=== PATIENT | female | born 1980 | race Caucasian/White ===

== ENCOUNTER 2018-07-25 19:58 | Inpatient (IN) ==
--- NOTE | 2018-07-25 21:00 | ED ---
Addendum entered and electronically signed by Ladan Golden MD, [place] 06:30: Original Note: History of Present Illness Primary Care Physician: NOT REQUIRED Chief Complaint: numb fingertips and swelling History of Present Illness: 38 yo G#P@ at 36 weeks and 4 days who presents to the OB ED due to increased hand swelling and high blood pressures at home. She reports that her BP has been normal in Dr. Mayen's office, but today she developed numbness in her hands and was instructed to monitor her BP at home. Her BP at home was high so she came to the OB ED. Here her BP was 162/86. She reports RUQ pain 2 days ago. She reports good movement. She denies vision changes, dizziness, lightheadedness, chest pain, acute dyspnea, cough, dysuria, vaginal bleeding, leakage of fluid, contractions. She denies any problems in this . OB Hx: Her last was 14 years ago. She has had 2 previous pregnancies with no complications. Her children were born vaginally at term. PMH: denies any medical problems PSH: femur yasmin placement Meds: PNV and iron FH: grandmother with hypertension Social Hx: Denies tobacco use, alcohol use or illicit drug use. She is a former smoker but quit when she found out she was . Weeks Gestation:: 36 Para: 2 : 3 Review of Systems All other systems reviewed negative except as stated in HPI PMFSH - History History Provided By: Patient - Medical / Surgical Hx Neg / Unobtainable Medical Problems Denied: Yes - Social History I have reviewed the patient's Social History: Yes - Tobacco History Tobacco Use In Past 30 Days: No Smoking Status: Former smoker Medications and Allergies Allergies Allergy/AdvReac Type Severity Reaction Status Date / Time No Known Allergies Allergy Verified 07/25/18 21:21 Home Medications Medication Instructions Recorded Confirmed Type Ferate 1 tab PO DAILY 07/25/18 07/26/18 History 1 tab CHEW DAILY 07/25/18 07/25/18 History Exam Vital signs: Vital Signs 07/25/18 20:26 Temperature 98.7 F Pulse Rate 79 Respiratory Rate 18 Blood Pressure 162/86 H Narrative: GENERAL: Well-nourished, well-developed patient. SKIN: Warm and dry. HEAD: Normocephalic and atraumatic. EYES: No scleral icterus. No injection or drainage. ENT: No nasal drainage noted. Mucous membranes pink. Airway patent. NECK: Supple, trachea midline. No JVD. CARDIOVASCULAR: Regular rate and rhythm without murmurs, gallops, or rubs. RESPIRATORY: Breath sounds equal bilaterally. No accessory muscle use. ABDOMEN/GI: Abdomen soft, non-tender, bowel sounds present, no rebound, no guarding Gravid to 36 weeks size GENITOURINARY: External Genitalia: intact and normal in appearance Cervix: midline Dilatation: closed Effacement: thick Station: high Presentation: linear lie Membranes: intact Uterine Contractions: none FHT's: Category: 1 Baseline: 140 Reactive: yes Variability: moderate Decels: none EXTREMITIES: trace pedal edema. NEUROLOGICAL: Awake and alert. Motor and sensory grossly within normal limits. Five out of 5 muscle strength in all muscle groups. Normal speech. Results - Labs CBC & Chem 7: 07/25/18 21:10 07/25/18 21:10 Assessment and Plan - Diagnosis (1) Elevated blood pressure affecting in third trimester, antepartum Code(s): O16.3 - Unspecified maternal hypertension, third trimester Status: Acute (2) 36 weeks gestation of Code(s): Z3A.36 - 36 weeks gestation of Status: Acute - Plan 38 yo at 36 weeks and 4 days who has new elevated blood pressures. Initially her BP was 162/86 and repeat BP were 152/88 and 155/90. FHR reassuring with category 1 tracing. Cervical exam closed/thick/high -Admit to L&D to monitor blood pressure -Initiate hypertension in protocol -CBC -CMP -24 hour urine protein -Urine p/c ratio -UA - Attending Attestation The exam, history, and the medical decision-making described in the above note were completed with the assistance of the resident physician. I reviewed and agree with the findings presented. I attest that I had a [id number] encounter with the patient on the same day, and personally performed and documented my assessment and findings in the medical record. Discharge Plan - Physicians Team Primary Care Provider: NOT REQUIRED, Attending Provider: Gonzalo Garcia
[2018-07-25] MEDS ORDERED: NIFEdipine 10 MG Capsule PO ONE (21:13)
[2018-07-25] MEDS ORDERED: NIFEdipine 10 MG Capsule PO PRN (21:13)
[2018-07-25 21:23] LABS: Hemoglobin 12.1 gm/dL (11.6-15.3); Mean Corpuscular HGB Conc 33.7 % (32.0-36.0); Mean Corpuscular Hemoglobin 29.4 pg (27.0-34.0); Mean Corpuscular Volume 87.2 fL (80.0-100.0); Mean Platelet Volume 9.2 fL (7.0-11.0); Platelet Count 245 th/mm3 (150-450); Red Blood Count 4.13 mil/mm3 (4.00-5.30); Red Cell Distribution Width 14.5 % (11.6-17.2); White Blood Count 13.6 th/mm3 (4.0-11.0)
[2018-07-25 21:48] LABS: Alanine Aminotransferase 19 U/L (10-53); Albumin 2.7 g/dL (3.4-5.0); Anion Gap 10 meq/L (5-15); Aspartate Aminotransferase 18 U/L (15-37); Blood Urea Nitrogen 8 mg/dL (7-18); Calcium 9.1 mg/dL (8.5-10.1); Carbon Dioxide 20.9 meq/L (21.0-32.0); Chloride 108 meq/L (98-107); Glomerular Filtration Rate Greater Than 89 mL/min (>89); Glucose,Random 77 mg/dL (74-106); Potassium 4.1 meq/L (3.5-5.1); Sodium 139 meq/L (136-145)
[2018-07-25 21:50] LABS: Protein/Creatinine Ratio,Urine 0.2 (0.00-0.14); Total Protein,Urine Random 11.8 mg/dL (0-11.8)
[2018-07-25 21:51] LABS: Alkaline Phosphatase 106 U/L (45-117); Total Protein 6.8 g/dL (6.4-8.2)
[2018-07-26] MEDS: Acetaminophen 325 MG Tablet PO PRN ×3 (00:38→19:21)
[2018-07-26 00:44] LABS: Bilirubin,Urine Negative (Negative); Clarity,Urine Clear (Clear); Color,Urine Yellow (Yellw/Straw); Glucose,Urine (UA) Negative (Negative); Leukocyte Esterase,Urine Negative (Negative); Mucus,Urine Few /lpf (Occasional); Nitrite,Urine Negative (Negative); Specific Gravity,Urine 1.012 (1.002-1.035); Squamous Epithelial Cell,Urine 1 /hpf (0-5)
--- NOTE | 2018-07-26 05:54 | P.HPOB ---
Addendum entered and electronically signed by Ladan Golden MD, [place] 06:31: Original Note: OB - ED Note Patient Name: Esha Heaton Date of : 78 Patient Status: Observation Attending Provider: Gonzalo Garcia Date: 07/25/18 21:00 Initialization Date: 07/25/18 21:00 History of Present Illness Primary Care Physician: NOT REQUIRED Chief Complaint: numb fingertips and swelling History of Present Illness: 38 yo G#P@ at 36 weeks and 4 days who presents to the OB ED due to increased hand swelling and high blood pressures at home. She reports that her BP has been normal in Dr. Mayen's office, but today she developed numbness in her hands and was instructed to monitor her BP at home. Her BP at home was high so she came to the OB ED. Here her BP was 162/86. She reports RUQ pain 2 days ago. She reports good movement. She denies vision changes, dizziness, lightheadedness, chest pain, acute dyspnea, cough, dysuria, vaginal bleeding, leakage of fluid, contractions. She denies any problems in this . OB Hx: Her last was 14 years ago. She has had 2 previous pregnancies with no complications. Her children were born vaginally at term. PMH: denies any medical problems PSH: femur yasmin placement Meds: PNV and iron FH: grandmother with hypertension Social Hx: Denies tobacco use, alcohol use or illicit drug use. She is a former smoker but quit when she found out she was . Weeks Gestation:: 36 Para: 2 : 3 Review of Systems All other systems reviewed negative except as stated in HPI PMFSH - History History Provided By: Patient - Medical / Surgical Hx Neg / Unobtainable Medical Problems Denied: Yes - Social History I have reviewed the patient's Social History: Yes - Tobacco History Tobacco Use In Past 30 Days: No Smoking Status: Former smoker Medications and Allergies Allergies Allergy/AdvReac Type Severity Reaction Status Date / Time No Known Allergies Allergy Uncoded 03/22/16 15:22 Exam Vital signs: Vital Signs 07/25/18 20:26 Temperature 98.7 F Pulse Rate 79 Respiratory Rate 18 Blood Pressure 162/86 H Narrative: GENERAL: Well-nourished, well-developed patient. SKIN: Warm and dry. HEAD: Normocephalic and atraumatic. EYES: No scleral icterus. No injection or drainage. ENT: No nasal drainage noted. Mucous membranes pink. Airway patent. NECK: Supple, trachea midline. No JVD. CARDIOVASCULAR: Regular rate and rhythm without murmurs, gallops, or rubs. RESPIRATORY: Breath sounds equal bilaterally. No accessory muscle use. ABDOMEN/GI: Abdomen soft, non-tender, bowel sounds present, no rebound, no guarding Gravid to 36 weeks size GENITOURINARY: External Genitalia: intact and normal in appearance Cervix: midline Dilatation: closed Effacement: thick Station: high Presentation: linear lie Membranes: intact Uterine Contractions: none FHT's: Category: 1 Baseline: 140 Reactive: yes Variability: moderate Decels: none EXTREMITIES: trace pedal edema. NEUROLOGICAL: Awake and alert. Motor and sensory grossly within normal limits. Five out of 5 muscle strength in all muscle groups. Normal speech. Assessment and Plan - Diagnosis (1) Elevated blood pressure affecting in third trimester, antepartum Code(s): O16.3 - Unspecified maternal hypertension, third trimester Status: Acute (2) 36 weeks gestation of Code(s): Z3A.36 - 36 weeks gestation of Status: Acute - Plan 38 yo at 36 weeks and 4 days who has new elevated blood pressures. Initially her BP was 162/86 and repeat BP were 152/88 and 155/90. FHR reassuring with category 1 tracing. Cervical exam closed/thick/high -Admit to L&D to monitor blood pressure -Initiate hypertension in protocol -CBC -CMP -24 hour urine protein -Urine p/c ratio -UA Discharge Plan - Discharge Disposition Patient Disposition: ED Admit(ED Internal Use Only) - Discharge Condition Condition: Stable - Physicians Team ED Provider: Gonzalo Garcia Primary Care Provider: NOT REQUIRED, - Discharge Instructions Print Language: Ma[place] The exam, history, and the medical decision-making described in the above note were completed with the assistance of the resident physician. I reviewed and agree with the findings presented. I attest that I had a [id number] encounter with the patient on the same day, and personally performed and documented my assessment and findings in the medical record.
--- NOTE | 2018-07-26 07:20 | P.OBANTE ---
Subjective Interval History: Patient is resting comfortably this morning. She does report a headache and has had a headache since she received Procardia. She received Tylenol and it only improved the headache slightly. She denies vision changes, RUQ pain, swelling in lower extremities. Antepartum ROS: Reports: movement normal Denies: Loss of fluid, Vaginal bleeding, Contractions Objective Vital Signs and I&O: Vital Signs 07/25/18 20:26 07/25/18 20:45 07/25/18 21:19 Temperature 98.7 F Pulse Rate 79 78 Respiratory Rate 18 18 18 Blood Pressure 162/86 H 152/88 H 07/25/18 21:30 07/25/18 21:45 07/25/18 22:00 Temperature Pulse Rate 75 75 Respiratory Rate 16 Blood Pressure 159/87 H 154/97 H 07/25/18 22:23 07/26/18 00:20 07/26/18 00:30 Temperature 97.9 F Pulse Rate 82 81 Respiratory Rate 18 Blood Pressure 144/77 H 148/83 H 07/26/18 04:30 07/26/18 04:32 Temperature 98.5 F Pulse Rate 76 Respiratory Rate 18 Blood Pressure 128/66 Intake & Output 07/25/18 07/26/18 07/26/18 18:59 06:59 18:59 Weight 99 kg Lab and Micro Results: Laboratory Results - last 24 hr 07/25/18 07/25/18 07/25/18 21:08 21:08 21:10 WBC 13.6 H RBC 4.13 Hgb 12.1 Hct 36.0 MCV 87.2 MCH 29.4 MCHC 33.7 RDW 14.5 Plt Count 245 MPV 9.2 Sodium Potassium Chloride Carbon Dioxide Anion Gap BUN Creatinine Estimated GFR Random Glucose Calcium Total Bilirubin AST ALT Alkaline Phosphatase Total Protein Albumin Urine Color Yellow Urine Clarity Clear Urine pH 7.0 Ur Specific [place] 1.012 Urine Protein Negative Urine Glucose (UA) Negative Urine Ketones Negative Urine Occult Blood Negative Urine Nitrate Negative Urine Bilirubin Negative Urine Urobilinogen Less than 2 Ur Leukocyte Esterase Negative Urine RBC Less than 1 Urine WBC 1 Ur Squamous Epith Cells 1 Urine Mucus Few H Micro UA Comment Culture not ind Ur Microscopic Review Not Reportable Urine Culture Comments Culture not ind Ur Random Creatinine 60 U Random Total Protein 11.8 Protein/Creatinin Ratio 0.20 H 07/25/18 21:10 WBC RBC Hgb Hct MCV MCH MCHC RDW Plt Count MPV Sodium 139 Potassium 4.1 Chloride 108 H Carbon Dioxide 20.9 L Anion Gap 10 BUN 8 Creatinine 0.54 Estimated GFR Greater than 89 Random Glucose 77 Calcium 9.1 Total Bilirubin 0.2 AST 18 ALT 19 Alkaline Phosphatase 106 Total Protein 6.8 Albumin 2.7 L Urine Color Urine Clarity Urine pH Ur Specific [place] Urine Protein Urine Glucose (UA) Urine Ketones Urine Occult Blood Urine Nitrate Urine Bilirubin Urine Urobilinogen Ur Leukocyte Esterase Urine RBC Urine WBC Ur Squamous Epith Cells Urine Mucus Micro UA Comment Ur Microscopic Review Urine Culture Comments Ur Random Creatinine U Random Total Protein Protein/Creatinin Ratio Physical Exam: GENERAL: Well-nourished, well-developed patient. CARDIOVASCULAR: Regular rate and rhythm without murmurs, gallops, or rubs. RESPIRATORY: Breath sounds equal bilaterally. No accessory muscle use. ABDOMEN/GI: Abdomen soft, non-tender. Fundus: 36 GENITOURINARY: FHT's: Category: 1 Baseline: 130 Reactive: yes Variability: moderate Decels: none EXTREMITIES: No cyanosis or edema, non-tender, without signs of DVT. Assessment and Plan - Diagnosis (1) Elevated blood pressure affecting in third trimester, antepartum Code(s): O16.3 - Unspecified maternal hypertension, third trimester Status: Acute (2) 36 weeks gestation of Code(s): Z3A.36 - 36 weeks gestation of Status: Acute - Plan 38 yo at 36 weeks and 5 days who has elevated blood pressures. Initially her BP was 162/86. Blood pressures this morning were 148/83 and 126/66. FHR reassuring with category 1 tracing. -Continue to monitor blood pressures -OB US for EFW -Initiate hypertension in protocol -CBC WNL -CMP WNL -24 hour urine protein -Urine p/c ratio- 0.20 -UA NEGATIVE for infection - Attending Attestation The exam, history, and the medical decision-making described in the above note were completed with the assistance of the resident physician. I reviewed and agree with the findings presented. I attest that I had a [id number] encounter with the patient on the same day, and personally performed and documented my assessment and findings in the medical record.
[2018-07-26] MEDS: Ferrous Sulfate 325 MG Tablet PO SCH (16:38)
[2018-07-26] MEDS: Docusate Sodium 100 MG Capsule PO SCH (16:38)
[2018-07-26] MEDS: Prenatal Vit/Ca/Iron/Folic Acid Tablet PO SCH (16:38)
[2018-07-26] MEDS ORDERED: Docusate Sodium 100 MG Capsule PO SCH (21:00)
[2018-07-26] MEDS ORDERED: Aluminum/Magnesium/Simethacone Susp 30 ML UDC PO PRN (23:28)
[2018-07-27] MEDS: Aluminum/Magnesium/Simethacone Susp 30 ML UDC PO SCH ×4 (00:06→18:28)
--- NOTE | 2018-07-27 07:49 | P.OBANTE ---
Subjective Interval History: doing well no c/o , baby active NST reactive Objective Vital Signs and I&O: Vital Signs 07/26/18 07:49 07/26/18 07:50 07/26/18 11:25 Temperature 98.7 F 98.5 F Pulse Rate 79 82 Respiratory Rate 17 19 Blood Pressure 129/83 143/85 H 07/26/18 15:31 07/26/18 19:26 07/26/18 23:30 Temperature 97.8 F 98.5 F 98.0 F Pulse Rate 76 73 76 Respiratory Rate 17 16 16 Blood Pressure 143/85 H 143/88 H 149/88 H 07/27/18 04:18 Temperature 98.4 F Pulse Rate 76 Respiratory Rate 16 Blood Pressure 141/75 H Intake & Output 07/26/18 07/27/18 07/27/18 18:59 06:59 18:59 Weight 99 kg Other: Weight On Admission 99 kg Lab and Micro Results: Laboratory Results - last 24 hr 07/26/18 22:00 Ur 24 Hour Volume 3120 Ur Total Protein 24 Hr 315 H Physical Exam: GENERAL: Well-nourished, well-developed patient. CARDIOVASCULAR: Regular rate and rhythm without murmurs, gallops, or rubs. RESPIRATORY: Breath sounds equal bilaterally. No accessory muscle use. ABDOMEN/GI: Abdomen soft, non-tender. Fundus: [-36 cm] GENITOURINARY: External Genitalia: intact and normal in appearance Cervix: [-] Dilatation: [-deferred] Effacement: [-] Station: [-] Presentation: [vtx-] Membranes: [-intact] Uterine Contractions: [none-] FHT's: Category: [1-] Baseline: [133-] Reactive: [-R] Variability: [mod-] Decels: [-0]+ accels EXTREMITIES: No cyanosis or edema, non-tender, without signs of DVT. Assessment and Plan - Diagnosis (1) Elevated blood pressure affecting in third trimester, antepartum Code(s): O16.3 - Unspecified maternal hypertension, third trimester Status: Acute (2) 36 weeks gestation of Code(s): Z3A.36 - 36 weeks gestation of Status: Acute - Plan 38 yo at 36 weeks and 6 days who has elevated blood pressures. Initially her BP was 162/86. Blood pressures this morning were borderline high. FHR reassuring with category 1 tracing. -Continue to monitor blood pressures -OB US for EFW -Initiate hypertension in protocol -CBC WNL -CMP WNL -24 hour urine protein -315 gm -Urine p/c ratio- 0.20 -UA NEGATIVE for infection Plan is cervical ripening tonight and induction of labor in AM
[2018-07-27] MEDS: Prenatal Vit/Ca/Iron/Folic Acid Tablet PO SCH (08:24)
[2018-07-27] MEDS: Docusate Sodium 100 MG Capsule PO SCH ×2 (08:24→20:20)
[2018-07-27] MEDS: Ferrous Sulfate 325 MG Tablet PO SCH (08:24)
[2018-07-27] MEDS ORDERED: Ferrous Sulfate 325 MG Tablet PO SCH (09:00)
[2018-07-27] MEDS ORDERED: Prenatal Vit/Ca/Iron/Folic Acid Tablet PO SCH (09:00)
[2018-07-27 17:37] LABS: Baso # (Auto) 0.1 th/mm3 (0.0-0.2); Baso % (Auto) 0.7 % (0.0-2.0); Eos # (Auto) 0.1 th/mm3 (0.0-0.4); Eos % (Auto) 0.8 % (0.0-4.0); Hematocrit 35.2 % (35.0-46.0); Hemoglobin 12.2 gm/dL (11.6-15.3); Lymph # (Auto) 2.7 th/mm3 (1.0-4.8); Mean Corpuscular HGB Conc 34.8 % (32.0-36.0); Mean Corpuscular Hemoglobin 30.6 pg (27.0-34.0); Mono # (Auto) 0.6 th/mm3 (0.0-0.9); Mono % (Auto) 4.5 % (0.0-8.0); Neut # (Auto) 9.5 th/mm3 (1.8-7.7); Platelet Count 230 th/mm3 (150-450); Red Blood Count 3.99 mil/mm3 (4.00-5.30); Red Cell Distribution Width 14.5 % (11.6-17.2)
[2018-07-27 17:54] LABS: Anion Gap 10 meq/L (5-15); Blood Urea Nitrogen 11 mg/dL (7-18); Calcium 9.1 mg/dL (8.5-10.1); Carbon Dioxide 22.5 meq/L (21.0-32.0); Chloride 108 meq/L (98-107); Glomerular Filtration Rate Greater Than 89 mL/min (>89); Glucose,Random 114 mg/dL (74-106); Potassium 3.8 meq/L (3.5-5.1); Sodium 140 meq/L (136-145)
[2018-07-27] MEDS: Acetaminophen 325 MG Tablet PO PRN (20:20)
[2018-07-28] MEDS: Zolpidem Tartrate 5 MG Tablet PO PRN ×2 (00:54→22:33)
[2018-07-28] MEDS: Ferrous Sulfate 325 MG Tablet PO SCH (08:28)
[2018-07-28] MEDS: Prenatal Vit/Ca/Iron/Folic Acid Tablet PO SCH (08:28)
[2018-07-28] MEDS: Oxytocin 30 Units/500ml Premix 30 UNITS/500 ML BAG IV.SIG PRN (08:28)
[2018-07-28] MEDS: Docusate Sodium 100 MG Capsule PO SCH ×2 (08:32→20:17)
[2018-07-28] MEDS: Aluminum/Magnesium/Simethacone Susp 30 ML UDC PO SCH ×2 (08:33→20:17)
--- NOTE | 2018-07-28 09:10 | P.OBANTE ---
Subjective Interval History: Patient seen and examined at bedside this am. No acute events overnight. Patient had cervidil removed this am appx 630 and will be started on pit. No other complaints. Antepartum ROS: Denies: New complaints Objective Vital Signs and I&O: Vital Signs 07/27/18 11:33 07/27/18 11:34 07/27/18 16:55 Temperature 98.0 F Pulse Rate 84 86 Respiratory Rate 18 Blood Pressure 149/87 H 158/86 H 07/27/18 18:27 07/27/18 19:13 07/27/18 20:16 Temperature 97.8 F Pulse Rate 84 80 Respiratory Rate 18 18 Blood Pressure 150/90 H 146/80 H 07/27/18 21:02 07/27/18 22:00 07/27/18 23:37 Temperature Pulse Rate 76 Respiratory Rate 18 18 18 Blood Pressure 143/72 H 07/27/18 23:38 07/28/18 00:50 07/28/18 02:35 Temperature 98.5 F Pulse Rate 76 78 Respiratory Rate 18 18 Blood Pressure 137/77 139/81 07/28/18 02:36 07/28/18 04:47 07/28/18 06:56 Temperature 97.6 F Pulse Rate 80 80 76 Respiratory Rate 18 18 Blood Pressure 140/86 136/86 159/91 H 07/28/18 07:19 07/28/18 07:24 07/28/18 08:36 Temperature 97.4 F L Pulse Rate 81 76 Respiratory Rate Blood Pressure 148/97 H 136/89 07/28/18 09:00 Temperature Pulse Rate 74 Respiratory Rate 18 Blood Pressure 151/99 H Lab and Micro Results: Laboratory Results - last 24 hr 07/27/18 07/27/18 07/27/18 17:25 17:25 17:25 WBC 13.0 H RBC 3.99 L Hgb 12.2 Hct 35.2 MCV 88.0 MCH 30.6 MCHC 34.8 RDW 14.5 Plt Count 230 MPV 9.0 Neut % (Auto) 73.0 H Lymph % (Auto) 21.0 [place] % (Auto) 4.5 Eos % (Auto) 0.8 Baso % (Auto) 0.7 Neut # (Auto) 9.5 H Lymph # (Auto) 2.7 [place] # (Auto) 0.6 Eos # (Auto) 0.1 Baso # (Auto) 0.1 WBC Differential . Differential Comment Auto diff final Sodium 140 Potassium 3.8 Chloride 108 H Carbon Dioxide 22.5 Anion Gap 10 BUN 11 Creatinine 0.58 Estimated GFR Greater than 89 Random Glucose 114 H Calcium 9.1 Blood Type O Negative Blood Type Recheck Not needed Physical Exam: GENERAL: Well-nourished, well-developed patient. CARDIOVASCULAR: Regular rate and rhythm without murmurs, gallops, or rubs. RESPIRATORY: Breath sounds equal bilaterally. No accessory muscle use. ABDOMEN/GI: Gravid Abdomen soft, non-tender. GENITOURINARY: External Genitalia: intact and normal in appearance Dilatation: 0-1 Effacement: 40 Station: -2 Presentation: vertex Membranes: intact Uterine Contractions: irregular FHT's: Category: 1 Baseline: 130 Reactive: yes Variability: mod Decels:none Accelerations: present EXTREMITIES: No cyanosis or edema, non-tender, without signs of DVT. Assessment and Plan - Diagnosis (1) Elevated blood pressure affecting in third trimester, antepartum Code(s): O16.3 - Unspecified maternal hypertension, third trimester Status: Acute (2) 36 weeks gestation of Code(s): Z3A.36 - 36 weeks gestation of Status: Acute - Plan 38 yo at 37 weeks who has elevated blood pressures. Initially her BP was 162/86. Blood pressures this morning ranged 130s-150s/ 90s. pt is asymptomatic. -Continue to monitor blood pressures -hypertension in protocol -OB US for EFW 07/28/18: weight at 26% for gestational age, BPP 8/8, JE 13.6cm -FHR reassuring with category 1 tracing. -CBC and CMP WNL -24 hour urine protein -315 gm -Urine p/c ratio- 0.20 -UA NEGATIVE for infection s/p cervical ripening overnight, cervidil removed this am and pit started. NPO c/w monitoring labor progression and labor induction sdw Dr. Ronquillo - Attending Attestation The exam, history, and the medical decision-making described in the above note were completed with the assistance of the resident physician. I reviewed and agree with the findings presented. I attest that I had a [id number] encounter with the patient on the same day, and personally performed and documented my assessment and findings in the medical record. Pt seen and examined. Pit started. AROM when able.
--- NOTE | 2018-07-28 17:18 | P.OBLABOR ---
Subjective Interval history: Patient is comfortable. She has been on pit since this morning, pit is currently at 20. no complaints. Objective Vital Signs: Vital Signs - 8 hr 07/28/18 09:30 07/28/18 10:30 07/28/18 10:35 Temperature Pulse Rate 77 73 Respiratory Rate 18 18 Blood Pressure 141/81 H 143/84 H 07/28/18 11:00 07/28/18 11:10 07/28/18 11:46 Temperature 97.8 F Pulse Rate 76 82 Respiratory Rate 18 18 Blood Pressure 152/81 H 140/77 07/28/18 12:00 07/28/18 12:12 07/28/18 12:53 Temperature Pulse Rate 74 74 Respiratory Rate 18 18 Blood Pressure 138/80 133/82 07/28/18 14:30 07/28/18 14:48 07/28/18 16:28 Temperature 97.9 F Pulse Rate 80 69 78 Respiratory Rate 18 18 Blood Pressure 146/87 H 140/81 144/82 H Objective: Pelvic Exam: Dilatation: fingertip to 1 Effacement: 30 Station: -3, unengaged with pelvis Membranes: intact Uterine Contractions: none FHT's: Category:1 Baseline: 120 Reactive: yes Variability: mod Decels: none Accelerations: present Assessment and Plan - Diagnosis (1) Elevated blood pressure affecting in third trimester, antepartum Code(s): O16.3 - Unspecified maternal hypertension, third trimester Status: Acute (2) 36 weeks gestation of Code(s): Z3A.36 - 36 weeks gestation of Status: Acute - Plan 38 yo at 37 weeks who has elevated blood pressures. Blood pressures improving this afternoon, 130-140/80s. Pt asymptomatic. -Continue to monitor blood pressures -hypertension in protocol -FHR reassuring with category 1 tracing. -s/p cervical ripening overnight, cervidil removed this am and pit started. -pt currently on pit at 20 which will be stopped at 1800 -No significant cervical change on recheck exam plan to start cervidil at 2000 and leave overnight c/w monitoring labor progression and labor induction sdw Dr. Stringer
--- NOTE | 2018-07-29 08:48 | P.OBLABOR ---
Subjective Interval history: Patient was eating breakfast during my evaluation. She has concerns or complaints at this time. Objective Vital Signs: Vital Signs - 8 hr 07/29/18 02:30 07/29/18 04:44 07/29/18 06:41 Temperature 97.9 F 97.9 F 97.7 F Pulse Rate 77 67 82 Respiratory Rate 18 18 18 Blood Pressure 135/81 120/80 134/88 07/29/18 08:18 Temperature Pulse Rate 68 Respiratory Rate 17 Blood Pressure 151/94 H Objective: Pelvic Exam: Cervix: Posterior Dilatation: 1 Effacement: 40 Station: -3 Presentation: Vertex confirmed by ultrasound Membranes: Ruptured artificially Uterine Contractions: Yes FHT's: Category: 1 Baseline: 140 Reactive: Yes Variability: Moderate Decels: 1 isolated deceleration Artificial Rupture of Membrane: Yes Artificial ROM Date: 07/29/18 Artificial ROM Time: 08:00 Assessment and Plan - Diagnosis (1) Elevated blood pressure affecting in third trimester, antepartum Code(s): O16.3 - Unspecified maternal hypertension, third trimester Status: Acute (2) 36 weeks gestation of Code(s): Z3A.36 - 36 weeks gestation of Status: Acute - Plan 38 yo at 37 weeks who has elevated blood pressures. Blood pressures stable today. Pt asymptomatic. -Continue to monitor blood pressures -hypertension in protocol -FHR reassuring with category 1 tracing. -patient on pitocin this AM. c/w monitoring labor progression and labor induction sdw Dr. Stringer
[2018-07-29] MEDS: Ferrous Sulfate 325 MG Tablet PO SCH (10:35)
[2018-07-29] MEDS: Prenatal Vit/Ca/Iron/Folic Acid Tablet PO SCH (10:35)
[2018-07-29] MEDS: Docusate Sodium 100 MG Capsule PO SCH (10:37)
[2018-07-29] MEDS: Aluminum/Magnesium/Simethacone Susp 30 ML UDC PO SCH (10:37)
--- NOTE | 2018-07-29 18:55 | P.OBLABOR ---
Subjective Interval history: Pt doing well. Feeling ctxs more but not significantly uncomfortable. SVE 2-3/ th/-3. Will continue Pitocin for now. FHTs 120s, +accels, no decels, mod variablilty, reactive, cat 1. Contractions q 3 min. Objective Vital Signs: Vital Signs - 8 hr 07/29/18 11:09 07/29/18 11:56 07/29/18 12:15 Temperature 98.1 F Pulse Rate 74 Respiratory Rate 18 18 Blood Pressure 144/88 H 07/29/18 12:42 07/29/18 13:07 07/29/18 14:00 Temperature Pulse Rate 68 Respiratory Rate 17 18 18 Blood Pressure 151/96 H 07/29/18 14:05 07/29/18 14:15 07/29/18 14:45 Temperature Pulse Rate 70 Respiratory Rate 17 18 Blood Pressure 158/90 H 07/29/18 15:00 07/29/18 15:01 07/29/18 15:07 Temperature 97.9 F Pulse Rate 76 Respiratory Rate 17 Blood Pressure 149/90 H 07/29/18 15:45 07/29/18 16:04 07/29/18 16:45 Temperature Pulse Rate Respiratory Rate 18 17 18 Blood Pressure 07/29/18 17:02 07/29/18 17:03 07/29/18 17:04 Temperature Pulse Rate 69 68 Respiratory Rate 17 Blood Pressure 161/96 H 07/29/18 17:45 07/29/18 17:58 07/29/18 17:59 Temperature 97.9 F Pulse Rate 79 Respiratory Rate 18 19 Blood Pressure 148/88 H 07/29/18 18:45 Temperature Pulse Rate Respiratory Rate 18 Blood Pressure Objective: Pelvic Exam: Cervix: [-] Dilatation: [-] Effacement: [-] Station: [-] Presentation: [-] Membranes: [intact or ruptured] Uterine Contractions: [-] FHT's: Category: [-] Baseline: [-] Reactive: [-] Variability: [-] Decels: [-] Assessment and Plan - Diagnosis (1) Elevated blood pressure affecting in third trimester, antepartum Code(s): O16.3 - Unspecified maternal hypertension, third trimester Status: Acute (2) 36 weeks gestation of Code(s): Z3A.36 - 36 weeks gestation of Status: Acute - Plan 38 yo at 37 weeks who has elevated blood pressures. Blood pressures stable today. Pt asymptomatic. -Continue to monitor blood pressures -hypertension in protocol -FHR reassuring with category 1 tracing. -patient on pitocin this AM. c/w monitoring labor progression and labor induction sdw Dr. Stringer
--- NOTE | 2018-07-29 21:16 | P.OBLABOR ---
Subjective Interval history: Pt doing well. She states ctxs becoming more uncomfortable but tolerable. SVE 3/50/-3, post. Ctxs every 3- 3 1/2 min. FHTs reactive, cat 1, 130s, +accels, no decels. Objective Vital Signs: Vital Signs - 8 hr 07/29/18 14:00 07/29/18 14:05 07/29/18 14:15 Temperature Pulse Rate 70 Respiratory Rate 18 17 Blood Pressure 158/90 H 07/29/18 14:45 07/29/18 15:00 07/29/18 15:01 Temperature 97.9 F Pulse Rate 76 Respiratory Rate 18 Blood Pressure 149/90 H 07/29/18 15:07 07/29/18 15:45 07/29/18 16:04 Temperature Pulse Rate Respiratory Rate 17 18 17 Blood Pressure 07/29/18 16:45 07/29/18 17:02 07/29/18 17:03 Temperature Pulse Rate 69 Respiratory Rate 18 17 Blood Pressure 161/96 H 07/29/18 17:04 07/29/18 17:45 07/29/18 17:58 Temperature 97.9 F Pulse Rate 68 Respiratory Rate 18 19 Blood Pressure 07/29/18 17:59 07/29/18 18:45 07/29/18 19:17 Temperature Pulse Rate 79 81 Respiratory Rate 18 Blood Pressure 148/88 H 155/90 H 07/29/18 19:18 Temperature 98.0 F Pulse Rate Respiratory Rate 18 Blood Pressure Objective: Pelvic Exam: Cervix: [-] Dilatation: [-] Effacement: [-] Station: [-] Presentation: [-] Membranes: [intact or ruptured] Uterine Contractions: [-] FHT's: Category: [-] Baseline: [-] Reactive: [-] Variability: [-] Decels: [-] Assessment and Plan - Diagnosis (1) Elevated blood pressure affecting in third trimester, antepartum Code(s): O16.3 - Unspecified maternal hypertension, third trimester Status: Acute (2) 36 weeks gestation of Code(s): Z3A.36 - 36 weeks gestation of Status: Acute - Plan 38 yo at 37 weeks who has elevated blood pressures. Blood pressures stable today. Pt asymptomatic. -Continue to monitor blood pressures -hypertension in protocol -FHR reassuring with category 1 tracing. -patient on pitocin this AM. c/w monitoring labor progression and labor induction
[2018-07-29] MEDS ORDERED: fentaNYL Citrate Inj 100 MCG/2 ML Ampul IV.PUSH PRN ×2 (21:41)
[2018-07-29] MEDS ORDERED: Naloxone Inj 0.4 MG/ML Vial IV.PUSH PRN (21:41)
[2018-07-30] MEDS ORDERED: Sod Chloride 0.9% Inj 1,000 ML IV.CONT PRN (00:54)
[2018-07-30] MEDS ORDERED: Oxytocin 30 Units/500ml Premix 30 UNITS/500 ML BAG IV.SIG ONE (00:54)
[2018-07-30] MEDS ORDERED: Sodium Chlor 0.9% Inj 500 ML IV.SIG PRN (00:54)
[2018-07-30] MEDS ORDERED: Citric Acid/Sodium Citrate Liq 30 ML UDC PO SCH (01:00)
[2018-07-30] MEDS ORDERED: Penicillin G Potassium Inj 5,000,000 UNIT in Sodium Chloride 0.9% Inj 100 ML IV.SIG ONE (02:00)
[2018-07-30] MEDS ORDERED: fentaNYL 2MCG-Bupiv 0.125% Epi 150 ML EPIDURAL ONE (03:10)
[2018-07-30] MEDS ORDERED: fentaNYL Citrate Inj 100 MCG/2 ML Ampul EPIDURAL ONE (04:02)
[2018-07-30] MEDS: Aluminum/Magnesium/Simethacone Susp 30 ML UDC PO SCH ×4 (04:25→21:13)
[2018-07-30] MEDS: fentaNYL 2MCG-Bupiv 0.125% Epi 150 ML EPIDURAL PRN ×2 (04:25→14:21)
[2018-07-30] MEDS: Penicillin G Potassium Inj 2,500,000 UNIT in Sodium Chlor 0.9% Inj 100 ML IV.SIG SCH ×5 (06:19→23:29)
--- NOTE | 2018-07-30 09:14 | P.OBLABOR ---
Subjective Interval history: Patient doing well this morning. She is tired but no other complaints. She is not feeling contractions. Objective Vital Signs: Vital Signs - 8 hr 07/30/18 02:00 07/30/18 03:36 07/30/18 03:50 Temperature 98.0 F 98.3 F Pulse Rate 73 79 Respiratory Rate 22 Blood Pressure 154/96 H 139/88 07/30/18 03:55 07/30/18 04:03 07/30/18 04:05 Temperature Pulse Rate 81 79 Respiratory Rate 18 Blood Pressure 141/71 H 141/81 H 142/83 H 07/30/18 04:10 07/30/18 04:15 07/30/18 04:25 Temperature Pulse Rate 75 76 78 Respiratory Rate Blood Pressure 143/85 H 143/82 H 140/77 07/30/18 04:30 07/30/18 05:00 07/30/18 05:30 Temperature Pulse Rate 73 78 80 Respiratory Rate Blood Pressure 141/80 H 135/75 141/79 H 07/30/18 06:00 07/30/18 06:22 07/30/18 06:30 Temperature 98.0 F Pulse Rate 75 74 Respiratory Rate 18 Blood Pressure 134/83 132/80 07/30/18 07:10 07/30/18 07:41 07/30/18 08:10 Temperature 98.8 F Pulse Rate 76 84 81 Respiratory Rate 20 Blood Pressure 129/77 124/73 125/64 Objective: Pelvic Exam: Cervix: posterior Dilatation: 3 Effacement: 50 Station: -3 Presentation: vertex Membranes: artificially ruptured 8:00AM 07/29/18 Uterine Contractions: yes FHT's: Category: 1 Baseline: 125 Reactive: yes Variability: moderate Decels: none Weeks Gestation: 37 Assessment and Plan - Diagnosis (1) Elevated blood pressure affecting in third trimester, antepartum Code(s): O16.3 - Unspecified maternal hypertension, third trimester Status: Acute (2) 36 weeks gestation of Code(s): Z3A.36 - 36 weeks gestation of Status: Acute - Plan 38 yo at 37 weeks 2 days who has elevated blood pressures. Blood pressures remain stable today. -Continue to monitor blood pressures -hypertension in protocol -Continue penicillin due to prolonged rupture of membrane -FHR reassuring with category 1 tracing. -Patient administered 50 mcg of vaginal Cytotec at 8:16 AM c/w monitoring labor progression and labor induction. Discussed with OB hospitalist, Dr. Ronquillo - Attending Attestation The exam, history, and the medical decision-making described in the above note were completed with the assistance of the resident physician. I reviewed and agree with the findings presented. I attest that I had a [id number] encounter with the patient on the same day, and personally performed and documented my assessment and findings in the medical record. Pt seen and examined. Discussed rationale for stopping pit and giving cytotec x 2. Will then restart pit. She understands. Pt afebrile and FHTs reactive.
--- NOTE | 2018-07-30 11:11 | P.OBGPN ---
Patient is a 38-year-old at 37 weeks and 2 days-admitted for signs and symptoms consistent with preeclampsia at this time normotensive. Received signout from Dr. Ronquillo. AROM at 8 AM yesterday clear fluid however minimal cervical change she has been on antibiotics. Went in to see and discussed with the patient plan of care cervix noted to be 3-4/60% effaced /-3 asynclitic presentation. The pelvis is noted to be adequate and status is reassuring. At this time plan change of maternal position continue with augmentation. Continue close monitoring maternal and status
[2018-07-30] MEDS ORDERED: Measles/Mumps/Rubella Vaccine Inj 0.5 ML Vial SQ ONE (16:00)
[2018-07-30] MEDS ORDERED: Diphtheria/Tetanus/Pertussis Vaccine Inj 0.5 ML Syringe IM ONE (16:00)
[2018-07-30] MEDS: Prenatal Vit/Ca/Iron/Folic Acid Tablet PO SCH (17:46)
[2018-07-30] MEDS: Ferrous Sulfate 325 MG Tablet PO SCH (17:46)
[2018-07-30] MEDS: Docusate Sodium 100 MG Capsule PO SCH ×2 (17:48→20:02)
--- NOTE | 2018-07-30 18:11 | P.OBGPN ---
Patient seen and evaluated. Blood pressures are within normal limits. Urine output is adequate. Vaginal exam 4 cm dilated 60% effaced -3 station. Cytotec x3 today. Plan to start oxytocin
[2018-07-30] MEDS: Oxytocin 30 Units/500ml Premix 30 UNITS/500 ML BAG IV.SIG PRN (18:30)
[2018-07-30] MEDS ORDERED: Bupivacaine PF 0.25% Inj 10 ML Vial ONE (21:38)
--- NOTE | 2018-07-30 22:36 | P.OBDELI ---
Weeks Gestation: 37 Patient Started Active Labor: No Medical Induction of Labor: Yes Artificial Rupture of Membrane: Yes Anesthesia: Epidural Vaginal Delivery: Normal Presentation: Occiput anterior Nuchal Cord: Other (Cord around both feet) Delayed Cord Clamping (45 sec): Yes Placenta: Spontaneous delivery Laceration: None Estimated blood loss (mL): 50 : Male Infant score (1 min): 5 score (5 min): 9 Additional Information: Blood pressure was noted to be 160s over 80 as patient approached 8 cm before she was actually quite normotensive. The plan will be to continue monitoring her blood pressure post delivery.
[2018-07-30] MEDS ORDERED: Oxytocin 30 Units/500ml Premix 30 UNITS/500 ML BAG IV.CONT PRN (22:47)
[2018-07-30] MEDS ORDERED: Naloxone Inj 0.4 MG/ML Vial IV.PUSH PRN (22:47)
[2018-07-30] MEDS ORDERED: Witch Hazel 50%/Glyderin 12.5% 40 Pad Jar RECTAL PRN (22:47)
[2018-07-30] MEDS ORDERED: Zolpidem Tartrate 5 MG Tablet PO PRN (22:47)
[2018-07-30] MEDS ORDERED: Benzocaine 20% Top Spray 60 ML Can TOPICAL PRN (22:47)
[2018-07-30] MEDS ORDERED: Bisacodyl 10 MG Supp RECTAL PRN (22:47)
[2018-07-31] MEDS: Acetaminophen 325 MG Tablet PO PRN ×3 (01:20→18:38)
[2018-07-31] MEDS: Senna/Docusate Sodium 8.6/50 MG Tablet PO SCH ×2 (07:59→21:00)
--- NOTE | 2018-07-31 09:17 | P.PNOB ---
Subjective Post day: 1 Interval history: Patient is a 38-year-old G 3 P 3 delivered at 37 weeks. Patient is day 1 after induced vaginal delivery due to maternal hypertension. She did have prolonged rupture of membranes. Patient's pain is well-controlled. After dinner last night, patient did have nausea. She has not yet ate this morning. Patient reports minimal bleeding. Patient has passed gas but no bowel movements. Patient is walking without lower extremity pain or shortness of breath. Patient reports desire for contraception and breast-feeding. She is contemplating a tubal ligation or her may be getting a vasectomy. Objective Vital Signs/I&O: Vital Signs 07/30/18 10:11 07/30/18 11:25 07/30/18 11:55 Temperature 98.6 F Pulse Rate 78 73 71 Respiratory Rate 20 Blood Pressure 138/88 152/97 H 156/88 H 07/30/18 12:25 07/30/18 12:50 07/30/18 12:52 Temperature 98.3 F Pulse Rate 71 76 Respiratory Rate 20 Blood Pressure 153/91 H 112/67 07/30/18 13:35 07/30/18 13:37 07/30/18 14:25 Temperature Pulse Rate 81 76 Respiratory Rate 20 Blood Pressure 125/78 134/107 H 07/30/18 14:48 07/30/18 14:55 07/30/18 15:15 Temperature 98.0 F Pulse Rate 64 71 69 Respiratory Rate 20 Blood Pressure 133/82 129/73 07/30/18 15:55 07/30/18 16:55 07/30/18 17:30 Temperature Pulse Rate 70 74 67 Respiratory Rate 20 Blood Pressure 120/74 123/73 142/85 H 07/30/18 18:20 07/30/18 18:35 07/30/18 18:55 Temperature Pulse Rate 82 67 70 Respiratory Rate 20 Blood Pressure 145/83 H 136/88 149/87 H 07/30/18 19:25 07/30/18 19:31 07/30/18 19:32 Temperature 97.9 F Pulse Rate 73 74 Respiratory Rate 18 Blood Pressure 126/70 07/30/18 19:40 07/30/18 19:45 07/30/18 19:50 Temperature Pulse Rate 70 70 68 Respiratory Rate Blood Pressure 07/30/18 19:55 07/30/18 20:00 07/30/18 20:05 Temperature Pulse Rate 70 68 73 Respiratory Rate Blood Pressure 121/69 07/30/18 20:10 07/30/18 20:15 07/30/18 20:25 Temperature Pulse Rate 75 72 74 Respiratory Rate Blood Pressure 07/30/18 20:30 07/30/18 20:35 07/30/18 20:40 Temperature Pulse Rate 73 75 74 Respiratory Rate Blood Pressure 127/73 07/30/18 20:45 07/30/18 20:50 07/30/18 20:55 Temperature Pulse Rate 71 71 71 Respiratory Rate Blood Pressure 07/30/18 21:00 07/30/18 21:05 07/30/18 21:10 Temperature Pulse Rate 72 70 72 Respiratory Rate Blood Pressure 128/90 07/30/18 21:15 07/30/18 21:20 07/30/18 21:25 Temperature 98.9 F Pulse Rate 76 70 69 Respiratory Rate Blood Pressure 07/30/18 21:30 07/30/18 21:35 07/30/18 21:40 Temperature Pulse Rate 79 78 74 Respiratory Rate Blood Pressure 07/30/18 21:45 07/30/18 21:48 07/30/18 21:50 Temperature Pulse Rate 75 72 71 Respiratory Rate Blood Pressure 164/95 H 07/30/18 21:55 07/30/18 22:00 07/30/18 22:05 Temperature Pulse Rate 70 69 75 Respiratory Rate Blood Pressure 165/89 H 07/30/18 22:10 07/30/18 22:20 07/30/18 22:25 Temperature Pulse Rate 72 71 93 H Respiratory Rate Blood Pressure 07/30/18 22:31 07/30/18 22:39 07/30/18 22:42 Temperature 98.1 F Pulse Rate 98 H Respiratory Rate 18 Blood Pressure 121/73 07/30/18 22:45 07/30/18 23:00 07/30/18 23:15 Temperature Pulse Rate 92 H 90 85 Respiratory Rate Blood Pressure 117/66 119/73 115/71 07/30/18 23:30 07/30/18 23:45 07/30/18 23:49 Temperature 98.1 F Pulse Rate 83 80 Respiratory Rate 16 Blood Pressure 124/72 116/75 07/31/18 00:36 07/31/18 08:00 Temperature 98.5 F 97.6 F Pulse Rate 86 66 Respiratory Rate 18 9 L Blood Pressure 124/74 126/79 Intake & Output 07/30/18 07/31/18 07/31/18 18:59 06:59 18:59 Intake Total 1600 / 1600 100 / 100 Balance 1600 / 1600 100 / 100 Intake: IV 1600 / 1600 100 / 100 LR 1000 mL Inj 1,000 ML @ 125 1000 / 1000 mls/hr IV.CONT .Q8H [facility] Rx#: [id number] Pitocin 30 Units/NS 500 ml 500 / 500 Premix 30 units In 500 ml @ 2 MILLIUNIT/MIN 2 mls/hr IV.SIG TITRATE PRN Rx#:[id number] Pfizerpen-G Inj 2,500,000 UNIT 100 / 100 100 / 100 In NS Inj 100 ML @ 200 mls/hr IV.SIG Q4H [facility] Rx#:[id number] Result Diagrams: 07/27/18 17:25 07/27/18 17:25 Objective Remarks: GENERAL: Well-nourished, well-developed patient. CARDIOVASCULAR: Regular rate and rhythm without murmurs, gallops, or rubs. RESPIRATORY: Breath sounds equal bilaterally. No accessory muscle use. ABDOMEN/GI: Abdomen soft, non-tender. Fundus: Firm, non-tender at umbilicus. GENITOURINARY: Light to moderate bleeding. EXTREMITIES: No cyanosis or edema, non-tender, without signs of DVT. Medications and IVs: Active Medications Acetaminophen (Tylenol) 650 mg PO Q4H PRN PRN Reason: PAIN SCALE 1 TO 2 Last Admin: 07/31/18 01:20 Dose: 650 mg Al Hydroxide/Mg Hydroxide (Milk Of Magnesia Liq) 30 ml PO Q12H PRN PRN Reason: Mild Constipation Benzocaine (Americaine 20% Top [place]) 1 spray TOPICAL Q4H PRN PRN Reason: For Perineum Discomfort Last Admin: 07/31/18 01:21 Dose: 1 spray Bisacodyl (Dulcolax Supp) 10 mg RECTAL DAILY PRN PRN Reason: SEVERE CONSITIPATION Citric Acid/Sodium Citrate (Sodium Citrate/Citric Acid Liq) 30 ml PO [employer] [facility] Stop: 08/03/18 00:59 Lactated Ringer's (Lr 1000 Ml Inj) 1,000 mls @ 3,000 mls/hr IV.SIG UNSCH PRN PRN Reason: compromise or epidural Sodium Chloride (Ns Inj) 500 mls @ 1,000 mls/hr IV.SIG UNSCH PRN PRN Reason: SEE LABEL COMMENTS Penicillin G Potassium 2,500, (000 unit/ Sodium Chloride) 100 mls @ 200 mls/hr IV.SIG Q4H [facility] Last Admin: 07/30/18 23:29 Dose: Not Given Sodium Chloride (Ns Inj) 1,000 mls @ 100 mls/hr IV.CONT .Q10H PRN PRN Reason: SEE LABEL COMMENTS Fentanyl/Bupivacaine/Sodium Chlor (Fentanyl 2 Mcg-Bupiv 0.125% Epi) 150 mls @ 12 mls/hr EPIDURAL PRN PRN PRN Reason: for Labor Pain Last Admin: 07/30/18 14:21 Dose: 12 mls/hr Oxytocin (Pitocin 30 Units/Ns 500 Ml Premix) 30 units in 500 mls @ 100 mls/hr IV.CONT UNSCH PRN PRN Reason: Heavy bleeding Ibuprofen (Motrin) 800 mg PO Q8H PRN PRN Reason: For Cramping Last Admin: 07/31/18 01:20 Dose: 800 mg Lactulose (Lactulose Liq) 30 ml PO DAILY PRN PRN Reason: SEVERE CONSITIPATION Lidocaine HCl (Xylocaine 1% Inj) 0.1 ml I-DERMAL PRN PRN PRN Reason: For IV start Stop: 08/02/18 00:53 Lidocaine HCl (Xylocaine 1% Inj) 10 ml INFILTRATN PRN PRN PRN Reason: For episiotomy repair Stop: 08/01/18 00:53 Naloxone HCl (Narcan Inj) 0.1 mg IV.PUSH Q2M PRN PRN Reason: for opiate reversal Ondansetron HCl (Zofran Inj) 4 mg IV.PUSH Q6H PRN PRN Reason: NAUSEA OR VOMITING Last Admin: 07/30/18 00:20 Dose: 4 mg Ondansetron HCl (Zofran Odt) 4 mg PO Q6H PRN PRN Reason: NAUSEA OR VOMITING Senna/Docusate Sodium (Lisy-Colace) 1 tab PO BID [facility] Last Admin: 07/31/18 07:59 Dose: 1 tab Sennosides (Senokot) 17.2 mg PO Q12H PRN PRN Reason: Moderate Constipation Sodium Chloride (Ns Flush) 2 ml IV.FLUSH BID [facility] Sodium Chloride (Ns Flush) 2 ml IV.FLUSH PRN PRN PRN Reason: FLUSH AFTER USING IV ACCESS Witch Temitope/Glycerin (Tucks Pads) 1 applicatio RECTAL QID PRN PRN Reason: HEMORRHOIDS Last Admin: 07/31/18 01:21 Dose: 1 applicatio Zolpidem Tartrate (Ambien) 5 mg PO HS PRN PRN Reason: SLEEP Assessment and Plan - Diagnosis (1) Elevated blood pressure affecting in third trimester, antepartum Code(s): O16.3 - Unspecified maternal hypertension, third trimester Status: Acute (2) Vaginal delivery Code(s): O80 - Encounter for full-term uncomplicated delivery Status: Acute - Plan Patient is a 38-year-old G 3 P 3 delivered at 37 weeks. Patient is day 1 after induced vaginal delivery due to maternal hypertension. Patient was counseled to do 6 weeks of pelvic rest. Patient was counseled to follow up in 6 weeks. Patient requested follow-up and contraception. --AF VSS --Continue routine care --Motrin and Percocet when necessary for pain --Encourage OOB --Pelvic rest for 6 weeks will need follow-up appointment at that time. --Contraception: Tubal ligation or vasectomy --Anticipate discharge tomorrow Discussed with OB hospitalist, Dr. Jung
--- NOTE | 2018-08-01 07:18 | P.PNOB ---
Subjective Post day: 2 Interval history: Patient is a 38-year-old G 3 P 3 delivered at 37 weeks. Patient is day 2 after induced vaginal delivery due to maternal hypertension. She did have prolonged rupture of membranes. Patient's pain is well-controlled. She is eating and drinking without nausea or vomiting. Patient reports minimal bleeding. Patient has passed gas but no bowel movements. Patient is walking without lower extremity pain or shortness of breath. Patient reports desire for contraception and breast-feeding. She is contemplating a tubal ligation or her may be getting a vasectomy. Objective Vital Signs/I&O: Vital Signs 07/31/18 08:00 07/31/18 20:00 Temperature 97.6 F 98.3 F Pulse Rate 66 64 Respiratory Rate 9 L 18 Blood Pressure 126/79 139/80 Result Diagrams: 07/27/18 17:25 07/27/18 17:25 Objective Remarks: GENERAL: Well-nourished, well-developed patient. CARDIOVASCULAR: Regular rate and rhythm without murmurs, gallops, or rubs. RESPIRATORY: Breath sounds equal bilaterally. No accessory muscle use. ABDOMEN/GI: Abdomen soft, non-tender. Fundus: Firm, non-tender at umbilicus. GENITOURINARY: Light to moderate bleeding. EXTREMITIES: No cyanosis or edema, non-tender, without signs of DVT. Medications and IVs: Active Medications Acetaminophen (Tylenol) 650 mg PO Q4H PRN PRN Reason: PAIN SCALE 1 TO 2 Last Admin: 07/31/18 18:38 Dose: 650 mg Al Hydroxide/Mg Hydroxide (Milk Of Magnesia Liq) 30 ml PO Q12H PRN PRN Reason: Mild Constipation Last Admin: 07/31/18 22:31 Dose: 30 ml Benzocaine (Americaine 20% Top [employer]) 1 spray TOPICAL Q4H PRN PRN Reason: For Perineum Discomfort Last Admin: 07/31/18 01:21 Dose: 1 spray Bisacodyl (Dulcolax Supp) 10 mg RECTAL DAILY PRN PRN Reason: SEVERE CONSITIPATION Citric Acid/Sodium Citrate (Sodium Citrate/Citric Acid Liq) 30 ml PO [employer] [facility] Stop: 08/03/18 00:59 Lactated Ringer's (Lr 1000 Ml Inj) 1,000 mls @ 3,000 mls/hr IV.SIG UNSCH PRN PRN Reason: compromise or epidural Sodium Chloride (Ns Inj) 500 mls @ 1,000 mls/hr IV.SIG UNSCH PRN PRN Reason: SEE LABEL COMMENTS Penicillin G Potassium 2,500, (000 unit/ Sodium Chloride) 100 mls @ 200 mls/hr IV.SIG Q4H [facility] Last Admin: 07/30/18 23:29 Dose: Not Given Sodium Chloride (Ns Inj) 1,000 mls @ 100 mls/hr IV.CONT .Q10H PRN PRN Reason: SEE LABEL COMMENTS Fentanyl/Bupivacaine/Sodium Chlor (Fentanyl 2 Mcg-Bupiv 0.125% Epi) 150 mls @ 12 mls/hr EPIDURAL PRN PRN PRN Reason: for Labor Pain Last Admin: 07/30/18 14:21 Dose: 12 mls/hr Oxytocin (Pitocin 30 Units/Ns 500 Ml Premix) 30 units in 500 mls @ 100 mls/hr IV.CONT UNSCH PRN PRN Reason: Heavy bleeding Ibuprofen (Motrin) 800 mg PO Q8H PRN PRN Reason: For Cramping Last Admin: 07/31/18 18:38 Dose: 800 mg Lactulose (Lactulose Liq) 30 ml PO DAILY PRN PRN Reason: SEVERE CONSITIPATION Lidocaine HCl (Xylocaine 1% Inj) 0.1 ml I-DERMAL PRN PRN PRN Reason: For IV start Stop: 08/02/18 00:53 Naloxone HCl (Narcan Inj) 0.1 mg IV.PUSH Q2M PRN PRN Reason: for opiate reversal Ondansetron HCl (Zofran Inj) 4 mg IV.PUSH Q6H PRN PRN Reason: NAUSEA OR VOMITING Last Admin: 07/30/18 00:20 Dose: 4 mg Ondansetron HCl (Zofran Odt) 4 mg PO Q6H PRN PRN Reason: NAUSEA OR VOMITING Senna/Docusate Sodium (Lisy-Colace) 1 tab PO BID [facility] Last Admin: 07/31/18 21:00 Dose: 1 tab Sennosides (Senokot) 17.2 mg PO Q12H PRN PRN Reason: Moderate Constipation Sodium Chloride (Ns Flush) 2 ml IV.FLUSH BID [facility] Last Admin: 07/31/18 22:09 Dose: Not Given Sodium Chloride (Ns Flush) 2 ml IV.FLUSH PRN PRN PRN Reason: FLUSH AFTER USING IV ACCESS Witch Temitope/Glycerin (Tucks Pads) 1 applicatio RECTAL QID PRN PRN Reason: HEMORRHOIDS Last Admin: 07/31/18 01:21 Dose: 1 applicatio Zolpidem Tartrate (Ambien) 5 mg PO HS PRN PRN Reason: SLEEP Assessment and Plan - Diagnosis (1) Elevated blood pressure affecting in third trimester, antepartum Code(s): O16.3 - Unspecified maternal hypertension, third trimester Status: Acute (2) Vaginal delivery Code(s): O80 - Encounter for full-term uncomplicated delivery Status: Acute - Plan Patient is a 38-year-old G 3 P 3 delivered at 37 weeks. Patient is day 2 after induced vaginal delivery due to maternal hypertension. Patient was counseled to do 6 weeks of pelvic rest. Patient was counseled to follow up in 6 weeks. Patient requested follow-up and contraception. --AF VSS --Continue routine care --Motrin when necessary for pain --Encourage OOB --Pelvic rest for 6 weeks will need follow-up appointment at that time. --Contraception: Tubal ligation or vasectomy --Discharged today wdw with OB hospitalist, Dr. Ronquillo - Attending Attestation The exam, history, and the medical decision-making described in the above note were completed with the assistance of the resident physician. I reviewed and agree with the findings presented. I attest that I had a [id number] encounter with the patient on the same day, and personally performed and documented my assessment and findings in the medical record. Pt seen and examined. Agree with resident.
[2018-08-01] MEDS: Senna/Docusate Sodium 8.6/50 MG Tablet PO SCH (09:41)
[2018-08-01] MEDS: Acetaminophen 325 MG Tablet PO PRN (09:41)
[2018-08-01 11:38] VITALS: BP 145/84
[2018-08-01 11:39] VITALS: PULSE 72; RESP 20; TEMP 98.7
== END 2018-08-01 12:30 | disposition home or self-care (01) | DRG 807 ==
LOC: H2E 19:58 → HOBED 19:58 → H2E 07-26 01:44 → H1EA 07-31 00:30
PROVIDERS: ADMIT Obstetrics & Gynecology; ATTEND Obstetrics & Gynecology
CPT/HCPCS: 59025; 76815; 76816; 76819; 76820; 80048; 80053; 81001; 82570; 84155; 84156; 84157; 85025; 85027; 86900; 86901; 90715; 99285; J2405; J2540; J2590; J3010; J7120